=== PATIENT | male | born 1950 | race Caucasian/White ===

== ENCOUNTER 2024-08-12 17:50 | Inpatient (IN) ==
[2024-08-12 19:35] LABS: Basophils # (Auto) 0.02 K/mcL (0.00-0.30); Basophils % (Auto) 0.2 % (0.0-2.0); Eosinophils # (Auto) 0.03 K/mcL (0.00-0.70); Eosinophils % (Auto) 0.3 % (0.0-7.0); Hematocrit 34.5 % (40.1-51.0); Hemoglobin 11.6 g/dL (13.7-17.5); Lymphocytes # (Auto) 0.59 K/mcL (1.50-4.80); Lymphocytes % (Auto) 6.6 % (15.5-49.0); Mean Cell Volume 98.6 fL (80.0-100.0); Mean Corpuscular HGB Conc 33.6 g/dL (31.0-36.0); Mean Platelet Volume 10.2 fL (8.8-12.5); Monocytes # (Auto) 0.77 K/mcL (0.10-0.90); Monocytes % (Auto) 8.6 % (1.0-12.0); Neutrophils % (Auto) 83.6 % (38.0-78.0); Platelet Count 142 K/mcL (140-440); Red Cell Distribution Width 14.9 % (11.5-14.5)
[2024-08-12 19:38] LABS: Erythrocyte Sedimentation Rate 27 mm/hr (0-20)
[2024-08-12 19:45] LABS: INR 1.5 (0.9-1.1)
[2024-08-12 19:46] LABS: ALT/SGPT 14 U/L (<40); AST/SGOT 16 U/L (<40); Albumin 3.5 gm/dL (3.2-5.2); Albumin/Globulin Ratio 1.2 (1.0-2.3); Alkaline Phosphatase 65 U/L (39-117); Bilirubin,Total 1.4 mg/dL (0.1-1.0); Blood Urea Nitrogen 17 mg/dL (8-23); Calcium 9.2 mg/dL (8.6-10.4); Carbon Dioxide 22 mmol/L (22-30); Chloride 103 mmol/L (96-108); Globulin 2.9 gm/dL (2.2-3.7); Glomerular Filtration Rate 60; Glucose 98 mg/dL (70-105); Sodium 135 mmol/L (133-145)
[2024-08-12 20:22] LABS: Appearance,Urine Clear (Clear); Bilirubin,Urine Negative (Negative); Color,Urine Yellow; Glucose,Urine (UA) Negative (Negative); Ketones,Urine 15 mg/dL (Negative); Leukocyte Esterase,Urine Negative /uL (Negative); Mucus,Urine Many /hpf; Nitrate,Urine Negative (Negative); PH,Urine 5.5 (5.0-9.0); Protein,Urine Trace mg/dL (Negative); Urine Blood Trace-intact ery/mcL (Negative); Urine RBC 1 /hpf (0-3); Urine Squamous Epithelial Cell 0 /hpf (0-4); Urine WBC 1 /hpf (0-4); Urobilinogen,Urine Normal
[2024-08-12] MEDS: ACETAMINOPHEN 1,000 MG/100 ML BAG IV SCH (21:23)
[2024-08-12] MEDS: ONDANSETRON 4 MG/2 ML VIAL IV PRN (21:42)
[2024-08-12] MEDS ORDERED: IOPAMIDOL 100 ML BOTTLE IV ONE (21:50)
[2024-08-12] MEDS: DEXTROSE 5%-1/2NS 1,000 ML IV SCH (22:54)
[2024-08-13] MEDS: ACETAMINOPHEN 1,000 MG/100 ML BAG IV SCH (05:42)
[2024-08-13 06:02] LABS: Basophils # (Auto) 0.01 K/mcL (0.00-0.30); Basophils % (Auto) 0.1 % (0.0-2.0); Eosinophils # (Auto) 0.07 K/mcL (0.00-0.70); Eosinophils % (Auto) 0.9 % (0.0-7.0); Hematocrit 31.9 % (40.1-51.0); Hemoglobin 10.5 g/dL (13.7-17.5); Lymphocytes # (Auto) 0.57 K/mcL (1.50-4.80); Lymphocytes % (Auto) 7.5 % (15.5-49.0); Mean Cell Volume 99.7 fL (80.0-100.0); Mean Corpuscular HGB Conc 32.9 g/dL (31.0-36.0); Mean Platelet Volume 10.2 fL (8.8-12.5); Monocytes % (Auto) 7.8 % (1.0-12.0); Neutrophils % (Auto) 83.3 % (38.0-78.0); Platelet Count 130 K/mcL (140-440); Red Cell Distribution Width 14.9 % (11.5-14.5); WBC 7.7 K/mcL (4.5-11.0)
[2024-08-13 06:29] LABS: ALT/SGPT 12 U/L (<40); AST/SGOT 14 U/L (<40); Albumin 3.1 gm/dL (3.2-5.2); Albumin/Globulin Ratio 1.1 (1.0-2.3); Alkaline Phosphatase 60 U/L (39-117); Bilirubin,Direct 0.5 mg/dL (<0.3); Bilirubin,Total 1.1 mg/dL (0.1-1.0); Blood Urea Nitrogen 16 mg/dL (8-23); Calcium 8.5 mg/dL (8.6-10.4); Carbon Dioxide 24 mmol/L (22-30); Chloride 103 mmol/L (96-108); Globulin 2.8 gm/dL (2.2-3.7); Glomerular Filtration Rate 67; Glucose 122 mg/dL (70-105); Lactate Dehydrogenase 197 U/L (135-225); Sodium 134 mmol/L (133-145); Triglycerides 88 mg/dL (<150); Uric Acid 5.3 mg/dL (2.5-8.0)
[2024-08-13] MEDS ORDERED: KETAMINE 50 MG/ML Syringe IV ONE (12:21)
[2024-08-13] MEDS ORDERED: ROCURONIUM 10 MG/ML ML IV ONE (12:22)
[2024-08-13] MEDS ORDERED: PROPOFOL 200 MG/20 ML VIAL IV ONE (12:22)
[2024-08-13] MEDS ORDERED: LIDOCAINE 2% PF 5 ML VIAL ONE (12:22)
[2024-08-13] MEDS ORDERED: DEXAMETHASONE 10 MG/ML VIAL ONE (12:22)
[2024-08-13] MEDS ORDERED: ONDANSETRON 4 MG/2 ML VIAL ONE (12:22)
[2024-08-13] MEDS ORDERED: TRANEXAMIC ACID 1,000 MG/10 ML VIAL ONE (12:22)
[2024-08-13] MEDS ORDERED: fentaNYL 100 MCG/2 ML VIAL ONE (12:22)
[2024-08-13] MEDS ORDERED: MAGNESIUM SULFATE 2 GM/50 ML BAG IV ONE (12:23)
[2024-08-13] MEDS ORDERED: HYDROmorphone 0.5 MG/0.5 ML SYRINGE ONE ×2 (13:48→15:15)
[2024-08-13] MEDS ORDERED: PHENYLephrine 1 MG/10 ML SYRINGE (ANEST) ONE (14:47)
[2024-08-13] MEDS ORDERED: SUGAMMADEX SODIUM 200 MG/2 ML VIAL IV ONE (15:12)
[2024-08-13] MEDS: ceFAZolin 3 GM in DEXTROSE 5% IN WATER 50 ML IV SCH (15:22)
[2024-08-13] MEDS: VANCOMYCIN 1 GM VIAL TOPICAL SCH ×2 (15:23→15:33)
[2024-08-13] MEDS: TOBRAMYCIN SULFATE 1.2 GM VIAL TOPICAL ONE (15:23)
[2024-08-13] MEDS ORDERED: METHOCARBAMOL 1,000 MG/10 ML VIAL IV PRN (15:35)
[2024-08-13] MEDS ORDERED: MEPERIDINE 25 MG/ML VIAL IV PRN (15:35)
[2024-08-13] MEDS ORDERED: fentaNYL 100 MCG/2 ML VIAL IV PRN (15:35)
[2024-08-13] MEDS ORDERED: IPRATROPIUM/ALBUTEROL 3 ML AMPUL.NEB NEB PRN (15:35)
[2024-08-13] MEDS ORDERED: LACTATED RINGERS 250 ML IV PRN (15:35)
[2024-08-13] MEDS ORDERED: diphenhydrAMINE 50 MG/ML VIAL IV PRN (15:35)
[2024-08-13] MEDS ORDERED: NALOXONE HCL 0.4 MG/ML VIAL IV PRN (15:35)
[2024-08-13] MEDS ORDERED: ONDANSETRON 4 MG/2 ML VIAL IV PRN (15:35)
[2024-08-13] MEDS ORDERED: ePHEDrine 50 MG/5 ML SYRINGE (ANEST) IV ONE (15:42)
[2024-08-13] MEDS ORDERED: POLYETHYLENE GLYCOL 3350 17 GM PACKET PO PRN (16:13)
[2024-08-13] MEDS ORDERED: MAGNESIUM HYDROXIDE 30 ML ORAL.SUSP PO PRN (16:13)
[2024-08-13] MEDS ORDERED: oxyCODONE IR 5 MG TABLET PO PRN (16:13)
[2024-08-13] MEDS ORDERED: FLEETS ADULT 1 DOSE ENEMA PR PRN (16:13)
[2024-08-13] MEDS ORDERED: BISACODYL 10 MG SUPP.RECT PR PRN (16:13)
[2024-08-13] MEDS ORDERED: BENZOCAINE/MENTHOL 1 LOZENGE PO PRN (16:13)
[2024-08-13] MEDS: ACETAMINOPHEN 1,000 MG/100 ML BAG IV ONE (16:15)
[2024-08-13] MEDS ORDERED: VANCOMYCIN PER PHARMACY IV SCH (16:45)
[2024-08-13] MEDS: PIPERACILLIN SODIUM/TAZOBACTAM 4.5 GM in DEXTROSE 5% IN WATER 50 ML IV ONE (17:28)
[2024-08-13] MEDS: TRANEXAMIC ACID 1,000 MG/10 ML VIAL IV SCH (17:49)
[2024-08-13] MEDS: LACTATED RINGERS 1,000 ML IV SCH ×2 (17:49→18:19)
[2024-08-13] MEDS: VANCOMYCIN 1,500 MG in 0.9 % SODIUM CHLORIDE 500 ML IV ONE (18:20)
[2024-08-13] MEDS: VANCOMYCIN 1,500 MG in 0.9 % SODIUM CHLORIDE 500 ML IV SCH (18:48)
[2024-08-13] MEDS: PIPERACILLIN SODIUM/TAZOBACTAM 3.375 GM in DEXTROSE 5% IN WATER 100 ML IV SCH (18:48)
[2024-08-13] MEDS: DOCUSATE SODIUM 100 MG CAPSULE PO SCH (20:40)
[2024-08-13] MEDS: SENNOSIDES 1 TABLET PO SCH (20:40)
[2024-08-13] MEDS: 0.9 % SODIUM CHLORIDE 10 ML SYRINGE IV SCH (20:42)
[2024-08-13] MEDS: PIPERACILLIN SODIUM/TAZOBACTAM 4.5 GM in DEXTROSE 5% IN WATER 100 ML IV SCH (22:56)
[2024-08-14] MEDS: ONDANSETRON 4 MG/2 ML VIAL IV PRN (02:04)
[2024-08-14 06:07] LABS: Basophils # (Auto) 0 K/mcL (0.00-0.30); Basophils % (Auto) 0 % (0.0-2.0); Eosinophils # (Auto) 0.01 K/mcL (0.00-0.70); Eosinophils % (Auto) 0.1 % (0.0-7.0); Hemoglobin 8.4 g/dL (13.7-17.5); Lymphocytes % (Auto) 3.7 % (15.5-49.0); Mean Cell Volume 101.2 fL (80.0-100.0); Mean Corpuscular HGB Conc 32.3 g/dL (31.0-36.0); Mean Platelet Volume 10.4 fL (8.8-12.5); Monocytes # (Auto) 0.46 K/mcL (0.10-0.90); Monocytes % (Auto) 5.7 % (1.0-12.0); Neutrophils % (Auto) 89.9 % (38.0-78.0); Platelet Count 128 K/mcL (140-440); RBC 2.57 M/mcL (4.63-6.08); Red Cell Distribution Width 14.3 % (11.5-14.5); WBC 8.1 K/mcL (4.5-11.0)
[2024-08-14 06:31] LABS: ALT/SGPT 12 U/L (<40); AST/SGOT 16 U/L (<40); Albumin 2.7 gm/dL (3.2-5.2); Albumin/Globulin Ratio 1.1 (1.0-2.3); Alkaline Phosphatase 53 U/L (39-117); Bilirubin,Total 0.5 mg/dL (0.1-1.0); Blood Urea Nitrogen 18 mg/dL (8-23); Calcium 8.2 mg/dL (8.6-10.4); Carbon Dioxide 20 mmol/L (22-30); Chloride 104 mmol/L (96-108); Globulin 2.4 gm/dL (2.2-3.7); Glomerular Filtration Rate 54; Glucose 164 mg/dL (70-105); Potassium 4.8 mmol/L (3.3-5.1); Sodium 132 mmol/L (133-145)
[2024-08-14 06:43] LABS: Vancomycin,Random 11.9 ug/mL
[2024-08-14] MEDS ORDERED: VANCOMYCIN 1,000 MG in 0.9 % SODIUM CHLORIDE 250 ML IV SCH (09:00)
[2024-08-14 09:14] LABS: Phosphorous 2.3 mg/dL (2.5-4.5); Uric Acid 4.7 mg/dL (2.5-8.0)
[2024-08-14] MEDS: VANCOMYCIN 1,500 MG in 0.9 % SODIUM CHLORIDE 500 ML IV ONE (10:36)
[2024-08-14] MEDS: SODIUM CHLORIDE 1 GM TABLET PO SCH (10:36)
[2024-08-14] MEDS: ENOXAPARIN 40 MG/0.4 ML SYRINGE SQ SCH (20:20)
[2024-08-15 09:16] LABS: Hematocrit 26.8 % (40.1-51.0); Hemoglobin 8.7 g/dL (13.7-17.5)
[2024-08-15 09:41] LABS: Blood Urea Nitrogen 22 mg/dL (8-23); Calcium 9.3 mg/dL (8.6-10.4); Carbon Dioxide 23 mmol/L (22-30); Chloride 105 mmol/L (96-108); Glomerular Filtration Rate 60; Glucose 109 mg/dL (70-105); Potassium 4.2 mmol/L (3.3-5.1); Sodium 138 mmol/L (133-145)
[2024-08-15] MEDS: VANCOMYCIN 1,500 MG in 0.9 % SODIUM CHLORIDE 500 ML IV ONE (10:10)
[2024-08-16 06:19] LABS: C-Reactive Protein 3.77 mg/dL (0.03-0.80)
[2024-08-16] MEDS ORDERED: ACETAMINOPHEN 325 MG TABLET PO PRN (06:38)
[2024-08-16] MEDS ORDERED: 0.9 % SODIUM CHLORIDE 10 ML SYRINGE IV PRN (07:15)
[2024-08-16] MEDS ORDERED: LIDOCAINE 1% 10 ML VIAL SQ ONE (09:06)
[2024-08-16] MEDS ORDERED: SODIUM CHLORIDE IRRIG SOLUTION 250 ML BOTTLE IRR ONE (09:06)
[2024-08-16] MEDS ORDERED: HEPARIN 10 UNITS/ML 5ML FLUSH IV ONE (09:06)
[2024-08-16] MEDS: HEPARIN 10 UNITS/ML 5ML FLUSH IV SCH ×2 (10:30)
[2024-08-16] MEDS: 0.9 % SODIUM CHLORIDE 10 ML SYRINGE IV SCH (10:31)
[2024-08-16] MEDS: VANCOMYCIN 1,500 MG in 0.9 % SODIUM CHLORIDE 500 ML IV SCH (16:21)
== END 2024-08-18 13:00 | DRG 467 ==
LOC: ED 17:50 → MEDSUR 17:50
PROVIDERS: ADMIT Orthopaedic Surgery; ATTEND Orthopaedic Surgery